=== PATIENT | female | born 1975 ===

== ENCOUNTER 2025-05-07 07:21 | Outpatient (CLI) | payer OTHER ==
[~2025-05-07 07:21] MED LIST: COLACE100 MG PO; IBUPROFEN800 MG PO; LEVSIN0.125 MG PO; MIRALAX12 EA PO; ORPH100T PO
== END 2025-05-07 07:30 | disposition home or self-care (01) ==
LOC: RX STUDY 07:21
DX: K59.01 Slow transit constipation (principal)

== ENCOUNTER 2025-06-07 09:17 | Outpatient (CLI) | payer OTHER | END 2025-06-07 09:18 | disposition home or self-care (01) | LOC: RX STUDY 09:17 | DX: K59.01 Slow transit constipation (principal) ==